=== PATIENT | female | born 2000 | race Caucasian/White ===

== ENCOUNTER 2020-04-18 11:08 | Emergency (ER) | payer SELFPAY ==
--- NOTE | 2020-04-18 11:21 | ED_ITS ---
HPI - URI/Sore Throat General Chief Complaint: Upper Respiratory Infection Stated Complaint: sinus pain Source: patient and RN notes reviewed Limitations: no limitations History of Present Illness HPI Narrative: The patient --non-smoker/non drinker previously healthy --presents with sinus congestion. Patient states she is 1/2-week history of nasal congestion and frontal/sinus headache. No fever, cough, S OB, loss of taste or smell, sore throat, travel history, CP, rash, sick family. She is a student, and symptoms seem typical,reminiscent of seasonal or yearly illness. Symptoms are mild unrelieved with OTC preparations like Mucinex Related Data Allergies Allergy/AdvReac Type Severity Reaction Status Date / Time No Known Allergies Allergy Verified 04/18/20 11:25 Review of Systems Review of Systems: Narrative: General/Constitutional: No weight loss,fever Eyes: N0: Redness,discharge Ears/Nose/Throat: No: Epistaxis,ear discharge Respiratory: Denies: Hemoptysis Gastrointestinal: No Vomiting, Bleeding-rectal Skin: No Lumps, eruption Neurologic: No Focal Weakness,Sz Hematologic: Denies: Petechiae/Purpura Psychiatric: No: Suicida ideationl All Other Systems: Reviewed and Negative PMFSH Comments At time of signature, agree with nursing past medical, surgical, social and family history. There is no relevant family history pertinent to the presenting complaint Exam Narrative: Exam Narrative: General Appearance: Well appearing, Conjunctiva c lear Ears: Auditory canal normal, TM normal Nose: Rhinorrhea, Mucousal erythema Mouth/Throat: MM moist, Uvula midline, Pharyngeal erythema Neck: Supple, No adenopathy Respiratory: No respiratory distress, Breath sounds equal, Clear to auscultation Musculoskeletal: Non tender, Normal strength Skin: Warm, Dry Neurological: A&O x3, , Normal affect Course Vital Signs Vital signs: Vital Signs Temperature 98.7 F 04/18/20 11:23 Pulse Rate 86 04/18/20 11:23 Respiratory Rate 18 04/18/20 11:23 Blood Pressure 119/72 04/18/20 11:23 Pulse Oximetry 99 04/18/20 11:23 Temperature 98.7 F 04/18/20 11:23 Pulse Rate 86 04/18/20 11:23 Respiratory Rate 18 04/18/20 11:23 Blood Pressure 119/72 04/18/20 11:23 Pulse Oximetry 99 04/18/20 11:23 Discharge Plan Discharge Clinical Impression: Sinus headache Patient Disposition: Home, Self-Care Condition: Stable Instructions: Antibiotic Form, Sinusitis (ED) Prescriptions: New amoxicillin 875 mg tablet 875 mg PO BID Qty: 20 RF: 0 azelastine 137 mcg (0.1 %) aerosol,spray 137 mcg NASAL Q12H Qty: 30 RF: 0 Other Ambulatory Orders: SARS-CoV-2 RNA, Qual RT-PCR (Routine) Location: Determined by Patient Ordered By: Bry Huertas Follow-up/Referrals: UNKNOWN,DOCTOR [Primary Care Provider] - Stand Alone Forms: Work/School Release IP
[2020-04-18 11:23] VITALS: BP 119/72; PULSE 86; RESP 18; TEMP 37.1; O2SAT 99
== END 2020-04-18 11:50 | disposition home or self-care (01) ==
PROVIDERS: Emergency Provider Emergency Medicine
DX: R51.9 Headache, unspecified (principal); Z20.828 Contact with and (suspected) exposure to other viral communicable diseases
CPT/HCPCS: 99213; G0463

== ENCOUNTER 2020-04-19 08:35 | Outpatient (NON) | payer SELFPAY ==
[2020-04-20 18:20] LABS: SARS-CoV-2 RNA PCR Positive
== END 2020-04-19 08:36 ==
PROVIDERS: Visit Provider Emergency Medicine
DX: U07.1 COVID-19 (principal)
CPT/HCPCS: 87635; C9803; U0003